=== PATIENT | female | born 1955 | race Caucasian/White ===

== ENCOUNTER 2018-03-09 13:54 | Observation (INO) ==
--- NOTE | 2018-03-09 14:04 | Emergency Department Note ---
Disposition Clinical Impression: Severe anemia, Mechanical heart valve present, Postural dizziness with presyncope Disposition: Admitted As Inpatient Condition: Good Recheck wound or abnormal lab - General Chief Complaint: ED Recheck/Abnormal Lab/Rx Stated Complaint: abnormal labs Time Seen by Provider: 03/09/18 14:04 Source: patient Mode of arrival: private vehicle Limitations: no limitations Nursing Notes Reviewed: Yes Vital Signs Reviewed: Yes - History of Present Illness HPI Narrative: Patient relates she follow with her family doctor yesterday and had a blood count for the sole reason that it is post be checked every once. She states she was called today that her hemoglobin is 6.5 and she should come to the emergency department. She states "I just need some blood". She has had similar in the [facility] secondary to mechanical heart valve. Her last transfusion is estimated to be about 1 year ago. She relates she has gone through full workup for other causes for anemia including an EGD and colonoscopy that a been unremarkable. She is on Coumadin with her mechanical valve and her INR was 2.0 on Tuesday last week. She denies headache, visual changes, fevers or chills. She denies chest pain, p alpitation, shortness of breath or cough. She denies abdominal pain, nausea or vomiting. She denies any GI complaints including any bloody or black stools. She reports normal urine without blood. She states she is started to feel "fuzzy with standing" as if "like going to pass out". She has not had any type of syncope or fall or other trauma. She has been taking her Coumadin regularly and did not have any change in her dosing recently. Pt Subjective Complaint: abnormal lab(s) Context: called for abnormal lab result - Related Data Home Medications Medication Instructions Recorded Confirmed Aspirin [Lo-Dose Aspirin EC] 81 mg PO DAILY 12/19/17 03/09/18 Atenolol [Tenormin] 0.5 tab PO BID 12/19/17 03/09/18 Ferrous Gluconate 324 mg PO DAILY 12/19/17 03/09/18 Lisinopril-HCTZ 10-12.5 [Prinzide 1 each PO BID 12/19/17 03/09/18 10-12.5] Simvastatin [Zocor] 10 mg PO DAILY 12/19/17 03/09/18 Warfarin [Coumadin] 5 mg PO DAILY 12/19/17 03/09/18 Allergies Allergy/AdvReac Type Severity Reaction Status Date / Time Penicillins AdvReac Anaphylaxis Verified 04/02/15 09:46 All systems ED: reviewed and negative except as stated. Past Medical History - Past Medical History Attestation: Yes The following information was validated with the patient. Source: patient, old records reviewed, obtained from family, nursing notes reviewed Medical history: Reports: CVA, hyperlipidemia, hypertension, valvular heart disease (Mechanical heart valve), other (Macular degeneration) Surgical history: Reports: cholecystectomy, heart valve replacement (Mechanical) Psychiatric history: Reports: no psych history MANAGER COUNCIL history: Reports: no MANAGER COUNCIL history - Social History Smoking Status: Never smoker Smokeless Tobacco Status: No Alcohol use: Reports: none Drug use: Reports: none Physical Exam - General Limitations: no limitations General appearance: alert, in no apparent distress - Head Head exam: atraumatic, normocephalic, normal inspection - Eye Eye exam: Present: normal appearance, PERRL, EOMI. Absent: scleral icterus, conjunctival injection - ENT ENT exam: normal exam, normal oropharynx, mucous membranes moist - Neck Neck exam: Present: normal inspection, full ROM, trachea midline - Chest Chest inspection: Present: normal inspection, symmetric chest wall rise - Respiratory Respiratory exam: Present: normal lung sounds bilaterally. Absent: respiratory distress, wheezes, prolonged expiratory phase - Cardiovascular Cardiovascular exam: Present: regular rate, normal rhythm, normal heart sounds. Absent: tachycardia, systolic murmur, rubs, JVD - Abdominal Exam Abdominal exam: Present: soft, Non-Tender, normal bowel sounds. Absent: tenderness, distention, guarding, rebound, rigidity - Extremities Exam Extremities exam: Present: normal inspection, full ROM, normal capillary refill. Absent: tenderness, pedal edema - Expanded Lower Extremity Exam Neurovascular/Tendon exam: Present: normal capillary refill. Absent: motor deficit, sensory deficit, tendon deficit Gait: observed and normal - Neurological Exam Neurological exam: Present: alert, oriented X3 - Psychiatric Psychiatric exam: Present: normal affect, normal mood - Skin Skin exam: Present: warm, dry, intact, normal color. Absent: rash, diaphoresis, pallor (Conjunctiva and her face have good color. Her palms are slightly pale.) Course Course Narrative: I reviewed the patient's old record. An IV has been established and baseline CBC, chemistries, INR and a type and screen have been sent. Disposition will be coordinated upon return of laboratories. 1422: The hospitalist, Dr. Velazquez, was available on the hospital floor. Given her history and reported anemia I discussed care with him. If she is indeed significantly anemic, he would like her admitted to the floor for transfusion of 2 units of packed red cells. He also desired to add a ferritin and iron profile to her labs. These will be sent to [facility] had 3:30 PM by [employer] Supervisor and should be available in the early evening. He wanted to assess if she would also need an iron transfusion. We are currently awaiting return of her initial laboratories. 1455: The patient's hemoglobin by our lab is 6.6. She is been written for 2 units of transfusion with a repeat CBC one hour post infusion of the second uni t. Orders have been coordinated to the floor in discussion with Dr. Velazquez. Patient is in stable condition. Vital Signs Temperature 98 F 03/09/18 13:55 Pulse Rate 94 03/09/18 13:55 Respiratory Rate 18 03/09/18 13:55 Blood Pressure 127/79 03/09/18 13:55 O2 Sat by Pulse Oximetry 98 03/09/18 13:55 Temperature 98 F 03/09/18 13:55 Pulse Rate 94 03/09/18 13:55 Respiratory Rate 18 03/09/18 13:55 Blood Pressure 127/79 03/09/18 13:55 O2 Sat by Pulse Oximetry 98 03/09/18 13:55 Oxygen Delivery Oxygen Delivery Room Air Recheck wound or abnormal lab - Medical Records Medical records reviewed: Yes I reviewed the patient's medical records. Name: Dia Grier Date of Study: 12/19/2017 Procedure Physician: Ruddy Conner MD Referring MD: Procedures Performed: CORONARY ANGIOGRAPHY Indications: Unstable Angina Worsening Angina Impressions: There is moderate one vessel coronary artery disease. Large 3 X vessel size aneursym of the proximal LAD Recommendations: Optimal medical therapy of patient's disease. Aggressive risk factor modification. Cardiac surgery Consult for aneurysmal proximal LAD evaluation as an OP History/Risk Factors: AVR [place] Hypertension Dyslipidemia Family History of CAD May 2015 the patient had a "normal capsule endoscopy". The patient's last significant episode of anemia was 05/09/2015 where she was transfused secondary to a hemoglobin of 7.4. Her last hemoglobin on record in the EMR is from 12/23/2017 when her hemoglobin was 9.2. - Lab Data Lab results reviewed: Yes I reviewed the patient's lab results. Result diagrams: 03/09/18 14:22 03/09/18 14:22 Lab Results 03/09/18 03/09/18 03/09/18 Range/Units 14:22 14:22 14:22 WBC 7.6 (4.3-11.1) K/mcL RBC 2.58 L (3.82-4.97) M/mcL Hgb 6.6 L (11.5-15.4) g/dL Hct 23.5 L (35.3-44.9) % MCV 91.1 (83.0-100.0) fL MCH 25.6 L (28.0-33.3) pg MCHC 28.1 L (31.6-35.5) g/dL RDW 15.9 H (11.5-14.5) % Plt Count 408 H (140-400) K/mcL MPV 9.8 (9.4-12.4) fL PT 20.1 H (9.4-12.1) Seconds INR 1.8 Sodium 141 (136-145) mEq/L Potassium 4.3 (3.5-5.1) mEq/L Chloride 105 (98-107) mEq/L Carbon Dioxide 29 (23-29) mEq/L BUN 15 (8-23) mg/dL Creatinine 0.84 (0.60-1.20) mg/dL Est GFR ( Amer) > 60 (> 60) Est GFR (Non-Af Amer) > 60 (> 60) BUN/Creatinine Ratio 18 (6-26) Glucose 135 H (70-105) mg/dL Calculated Osmolality 295 (280-300) Calcium 8.9 (8.6-10.3) mg/dL Blood Type 03/09/18 Range/Units 14:22 WBC (4.3-11.1) K/mcL RBC (3.82-4.97) M/mcL Hgb (11.5-15.4) g/dL Hct (35.3-44.9) % MCV (83.0-100.0) fL MCH (28.0-33.3) pg MCHC (31.6-35.5) g/dL RDW (11.5-14.5) % Plt Count (140-400) K/mcL MPV (9.4-12.4) fL PT (9.4-12.1) Seconds INR Sodium (136-145) mEq/L Potassium (3.5-5.1) mEq/L Chloride (98-107) mEq/L Carbon Dioxide (23-29) mEq/L BUN (8-23) mg/dL Creatinine (0.60-1.20) mg/dL Est GFR ( Amer) (> 60) Est GFR (Non-Af Amer) (> 60) BUN/Creatinine Ratio (6-26) Glucose (70-105) mg/dL Calculated Osmolality (280-300) Calcium (8.6-10.3) mg/dL Blood Type A POSITIVE
[2018-03-09 14:31] LABS: Basophils # 0.1 K/mcL (0.0-0.2); Basophils % 0.8 %; Eosinophils # 0.2 K/mcL (0.0-0.6); Eosinophils % 2.5 %; Hematocrit 23.5 % (35.3-44.9); Hemoglobin 6.6 g/dL (11.5-15.4); Immature Granulocytes % 0.4 % (0-4); Lymphocytes # 1.5 K/mcL (0.6-4.6); Lymphocytes % 19.9 %; Mean Corpuscular HGB Conc 28.1 g/dL (31.6-35.5); Mean Corpuscular Hemoglobin 25.6 pg (28.0-33.3); Mean Corpuscular Volume 91.1 fL (83.0-100.0); Mean Platelet Volume 9.8 fL (9.4-12.4); Monocytes # 0.5 K/mcL (0.0-1.3); Monocytes % 6.7 %; Neutrophils # 5.3 K/mcL (1.6-8.9); Platelet Count 408 K/mcL (140-400); Red Blood Count 2.58 M/mcL (3.82-4.97); Red Cell Distribution Width 15.9 % (11.5-14.5); Segmented Neutrophils % 69.7 %
[2018-03-09 14:39] LABS: INR 1.8; Prothrombin Time 20.1 Seconds (9.4-12.1)
[2018-03-09 14:50] LABS: BUN/Creatinine Ratio 18 (6-26); Blood Urea Nitrogen 15 mg/dL (8-23); Calcium 8.9 mg/dL (8.6-10.3); Carbon Dioxide 29 mEq/L (23-29); Chloride 105 mEq/L (98-107); Glucose 135 mg/dL (70-105); Osmolality,Calculated 295 (280-300); Potassium 4.3 mEq/L (3.5-5.1); Sodium 141 mEq/L (136-145); eGFR For Non-African Americans > 60 (> 60)
[2018-03-09 15:21] LABS: Anisocytosis 1+ (Not Present); Hypochromasia Present (Not Present); Ovalocytes 1+ (Not Present); Platelet Estimate Normal (Normal); Polychromasia 1+ (Not Present)
[2018-03-09] MEDS ORDERED: Naloxone 0.4 MG/ML INJ IVP PRN (15:49)
[2018-03-09 17:20] LABS: % Iron Saturation 32 % (15-50); Iron 139 mcg/dL (50-170); Transferrin 310 mg/dL (203-362)
[2018-03-09 17:38] LABS: Ferritin 9 ng/mL (10-120)
[2018-03-09] MEDS ORDERED: SODIUM CHLORIDE 0.9% IVPB ONE (17:46)
[2018-03-09] MEDS ORDERED: IRON DEXTRAN COMPLEX IVPB ONE (17:46)
--- NOTE | 2018-03-09 17:52 | Internal Med History&Physical ---
Date of Encounter: 03/09/18 Time of Encounter: 17:20 Assessment and Plan (1) Anemia Current visit: Yes Status: Acute Iron studies showed iron 139, transferrin saturation 32%, transferrin 310, and ferritin 9. She will be given 2 units of packed red blood cells and iron dextran infusion. Qualifiers: Anemia type: iron deficiency Iron deficiency anemia type: unspecified iron deficiency Qualified Code(s): D50.9 - Iron deficiency anemia, unspecified (2) History of aortic valve replacement Current visit: No Status: Chronic Coumadin dose will be increased since INR is subtherapeutic for mechanical v alve. Lovenox bridging will be ordered. Labs will be rechecked in a.m. (3) Hypertension Current visit: No Status: Chronic Continue atenolol and lisinopril/HCTZ. Qualifiers: Hypertension type: essential hypertension Qualified Code(s): I10 - Essential (primary) hypertension Internal Medicine - H&P: HPI Chief complaint: Anemia Admitted From: Emergency Dept Plans for Post Hospital Care: Home History of present illness: Ms. Grier is a 62 year old female who was directed to come to emergency room by her PCP office staff after she was found to have severe anemia on blood work drawn at an office visit March 08. Labs in emergency room confirmed anemia with hemoglobin 6.6. She was [facility] floor for blood transfusion and ongoing care needs. She is on chronic Coumadin therapy secondary to mechanical aortic valve placement 2007 for aortic regurgitation. She states she was placed on aspirin a few months ago but does not remember the clinical indication for this. She denies melena or hematochezia. She has been getting progressively weaker overall with dyspnea and orthostatic changes on arising from a seated position in the past few weeks. She has had anemia in the past with EGD, capsule endoscopy, and colonoscopy 2014 showing no pathology or source of blood loss. She states her INR was 2.0 most recently in Coumadin clinic without dosage adjustment made. She denies known internal malignancies or other blood disorders. Past Med Surg Social Fam HX - Past Medical History Medical history: CVA, hyperlipidemia, hypertension, valvular heart disease (Mechanical heart valve), other (Macular degeneration) Additional medical history: MACULAR DEGENERATION. AVR Psychiatric history: no psych history - Past Surgical History Surgical History: cholecystectomy, heart valve replacement (Mechanical) - Social History Smoking Status: Never smoker Smokeless Tobacco Status: No Alcohol use: none Drug use: none - Family History Father Hx Family Endocrine Disorder: Yes Internal Medicine - H&P: Meds Aspirin [Lo-Dose Aspirin EC] 81 mg PO DAILY 12/19/17 [History] Atenolol [Tenormin] 0.5 tab PO BID 12/19/17 [History] Ferrous Gluconate 324 mg PO DAILY 12/19/17 [History] Lisinopril-HCTZ 10-12.5 [Prinzide 10-12.5] 1 each PO BID 12/19/17 [History] Simvastatin [Zocor] 10 mg PO DAILY 12/19/17 [History] Warfarin [Coumadin] 5 mg PO DAILY 12/19/17 [History] Allergy/AdvReac Type Severity Reaction Status Date / Time Penicillins AdvReac Anaphylaxis Verified 04/02/15 09:46 All Systems PM: A 10-system review of systems was performed and is negative for pertinent findings except as documented above in the HPI. Review of systems: Gen.: She states her weight has been stable the past few months Cardiovascular: She has history of hypertension but denies IA heart failure angina DVT or pulmonary embolus. She had mechanical aortic valve replacement 2007 as per above. Respiratory: She is a lifelong nonsmoker. She reports a diagnosis of asthma in early adulthood. GI: She has had cholecystectomy. She denies disorders of her liver or exocrine pancreas. : She denies hematuria dysuria or kidney stones Neurologic: She claims she had stroke at age 31 leaving her with slight left sided weakness, slowed cognition, and loss of peripheral vision. She has had no further strokes or TIAs. She denies seizures or other neurologic disorders Endocrine: She she denies diabetes or thyroid disease. She is on simvastatin but is uncertain if she has hyperlipidemia. Hematology/oncology: As per history of present illness Psychiatric: She denies anxiety depression or other mental health issues. Musko skeletal: She denies arthritis gout or other bone joint or muscle disorders. She reports a family history of Marfan syndrome. - Constitutional Vitals: Temp Pulse Resp BP Pulse Ox 98 F 86 18 114/62 98 03/09/18 13:55 03/09/18 15:07 03/09/18 15:07 03/09/18 15:07 03/09/18 16:06 Exam: Gen.: She is a well-developed well-nourished female resting comfortably in bed who appears in no acute distress at present time HEENT: Head is atraumatic and normocephalic. Eyes: EOMI. There is no scleral icterus. Mouth: Mucosa is moist. Neck: Supple and nontender. There is no thyromegaly or adenopathy noted. Heart: Regular with crisp mechanical valve sounds. No gallops or ectopics are heard. Lungs: No wheezes or crackles are heard. Abdomen: Soft and nontender. No masses or guarding are noted. Extremities: There is no cyanosis edema or clubbing noted. Dorsalis pedis and posttibial pulses are trace to 1+ palpable bilaterally. Neurologic: Mental status: She is talkative and a good historian. Cranial nerves: Smile is symmetric. Farr wrinkles bilaterally. Tongue protrudes midline. EOMI. Motor: There is no pronator drift. Cerebellar: Finger to nose is intact bilaterally. Skin: Warm and dry Internal Med - H&P Results - Labs CBC & Chem 7: 03/09/18 14:22 03/09/18 14:22 Labs: Short CBC 03/09/18 Range/Units 14:22 WBC 7.6 (4.3-11.1) K/mcL Hgb 6.6 L (11.5-15.4) g/dL Hct 23.5 L (35.3-44.9) % Plt Count 408 H (140-400) K/mcL Neutrophils # 5.3 (1.6-8.9) K/mcL BMP 03/09/18 14:22 Sodium 141 Potassium 4.3 Chloride 105 Carbon Dioxide 29 BUN 15 Creatinine 0.84 Glucose 135 H Calcium 8.9
[2018-03-09] MEDS ORDERED: *HR* Warfarin 5 MG TABLET PO SCH (18:00)
[2018-03-09] MEDS ORDERED: 0.9 % Sodium Chloride 1,000 ML ONE (18:11)
[2018-03-09] MEDS: *HR* Enoxaparin 80 MG/0.8 ML SYRINGE SQ SCH (19:43)
[2018-03-09] MEDS ORDERED: 0.9 % Sodium Chloride 250 ML ONE (21:11)
[2018-03-10 05:53] LABS: Basophils % 0.4 %; Eosinophils # 0.1 K/mcL (0.0-0.6); Eosinophils % 1.3 %; Hematocrit 26.3 % (35.3-44.9); Hemoglobin 7.9 g/dL (11.5-15.4); Immature Granulocytes % 0.5 % (0-4); Lymphocytes % 10.9 %; Mean Corpuscular Hemoglobin 26.4 pg (28.0-33.3); Mean Platelet Volume 10.5 fL (9.4-12.4); Monocytes # 0.6 K/mcL (0.0-1.3); Neutrophils # 7.4 K/mcL (1.6-8.9); Platelet Count 319 K/mcL (140-400); Red Blood Count 2.99 M/mcL (3.82-4.97); Red Cell Distribution Width 14.9 % (11.5-14.5); Segmented Neutrophils % 80.9 %
[2018-03-10 06:39] LABS: INR 1.9; Prothrombin Time 21.5 Seconds (9.4-12.1)
[2018-03-10] MEDS: *HR* Enoxaparin 80 MG/0.8 ML SYRINGE SQ SCH (06:40)
[2018-03-10] MEDS ORDERED: Aspirin Enteric Coated 81 MG Tablet PO SCH (09:00)
[2018-03-10] MEDS ORDERED: *HR* Warfarin 3 MG TABLET PO ONE (09:49)
--- NOTE | 2018-03-10 09:51 | Discharge Summary ---
Orders not resulted at time of discharge: Pending orders 03/10/18 04:42 Folate AM 0400 Vitamin B12 AM 0400 Date of Encounter: 03/10/18 Time of Encounter: 09:45 - Discharge Diagnosis (1) Anemia Priority: Primary Status: Acute Qualifiers: Anemia type: iron deficiency Iron deficiency anemia type: unspecified iron deficiency Qualified Code(s): D50.9 - Iron deficiency anemia, unspecified (2) History of aortic valve replacement Priority: Secondary Status: Chronic (3) Hypertension Priority: Secondary Status: Chronic Qualifiers: Hypertension type: essential hypertension Qualified Code(s): I10 - Essential (primary) hypertension Hospital course: Ms. Grier is a 62 year old female who was directed to come to emergency room by her PCP office staff after she was found to have severe anemia on blood work drawn at an office visit March 08. Labs in emergency room confirmed anemia with hemoglobin 6.6. She was admitted to [facility] for blood transfusion and ongoing care needs. Initial orders were written by the emergency room physician. I saw her on March 09 performed a history and physical. Iron studies showed iron 139, transferrin saturation 32%, transferrin 310, and ferritin 9. She was given an iron dextran infusion and was transfused 2 units packed red blood cells. Her hemoglobin natanael to 7.9 on March 10. Orthostatic symptoms resolved after blood transfusion. B12 and folate levels are pending at time of discharge. On March 10 she felt significantly improved and wished to be discharged home which I felt was reasonable. Coumadin dose will be increased to 6 mg daily. Aspirin will be discontinued. I explained to her that the INR should be 2.5-3.5 since she has a mechanical valve. She will follow with her PCP Calli Ramachandran CNP within 1 week. - Time Spent with Patient Total time spent providing and/or coordinating discharge services: - Discharge Medications Home Medications: Atenolol [Tenormin] 0.5 tab PO BID 12/19/17 [History] Ferrous Gluconate 324 mg PO DAILY 12/19/17 [History] Lisinopril-HCTZ 10-12.5 [Prinzide 10-12.5] 1 each PO BID 12/19/17 [History] Simvastatin [Zocor] 10 mg PO DAILY 12/19/17 [History] Warfarin [Coumadin] 6 mg PO DAILY #0 03/10/18 [Rx] Allergies/Adverse Reactions: Allergy/AdvReac Type Severity Reaction Status Date / Time Penicillins AdvReac Anaphylaxis Verified 04/02/15 09:46 Date of admission: 03/09/18 15:00 Primary care physician: Calli Ramachandran - Constitutional Vitals: Temp Pulse Resp BP Pulse Ox 98.6 F 73 14 114/62 98 03/10/18 07:34 03/10/18 07:34 03/10/18 07:34 03/10/18 07:34 03/10/18 07:34 - Patient Status Disposition: Home, Self-Care Condition: Good - Discharge Instructions Follow Up With: Calli Ramachandran, [employer]OUST[employer] INSTALLER [Primary Care Provider] - 1 week - Diet and Activity Activity: resume usual activities as tolerated Diet: advance to your usual diet
[2018-03-10 10:31] LABS: Folate 8.8 ng/mL (3.0-16.0)
[2018-03-10 11:31] VITALS: BP 117/64
== END 2018-03-10 11:35 | disposition home or self-care (01) ==
LOC: INPPIK 13:54 → EMEROOPIK 13:54 → INPPIK 15:22
PROVIDERS: ADMIT Internal Medicine; ATTEND Internal Medicine